=== PATIENT | male | born 1980 | race Caucasian/White ===

== ENCOUNTER 2021-02-18 14:54 | Inpatient (IN) ==
[2021-02-18] MEDS ORDERED: NS 0.9% 1000 ml BAG 1,000 ML IV ONE ×2 (14:56→15:07)
[2021-02-18 15:14] LABS: Hematocrit 51 % (42-52); Hemoglobin 16.9 g/dL (14.0-18.0); Mean Corpuscular HGB Conc 33 g/dL (31-36); Mean Corpuscular Hemoglobin 31 pg (27-31); Mean Corpuscular Volume 93 fL (80-94); Mean Platelet Volume 7.9 fL (7.4-10.4); Platelet Count 289 10^3/uL (150-450); Red Blood Count 5.45 10^6 /uL (4.18-5.48); Red Cell Distribution Width 14 % (10-15); White Blood Count 26.3 10^3/uL (3.5-10.8)
[2021-02-18] MEDS ORDERED: Iodixanol (CONTRAST) 320 MG/ML 100 ML SDV IV ONE (15:16)
[2021-02-18] MEDS ORDERED: Lorazepam PYXIS KEY PRN (15:18)
[2021-02-18] MEDS ORDERED: LORazepam 2 mg VIAL 1 ml IV PUSH ONE (15:18)
[2021-02-18 15:40] LABS: Troponin I 0.06 ng/mL (<0.03)
[2021-02-18 15:49] LABS: ABS Basophils 0.1 10^3/ul (0-0.2); ABS Lymphocytes 1.5 10^3/ul (1.0-4.8); ABS Monocytes 1.2 10^3/ul (0-0.8); ABS Neutrophils 23.5 10^3/ul (1.5-7.7); Activated Partial Thrombo Time 25.3 seconds (26.0-38.0); Eosinophil % 0.1 %; INR 0.98 (0.82-1.09); Lymphocyte % 5.6 %
[2021-02-18 15:52] LABS: ALT 100 U/L (7-52); AST 112 U/L (13-39); Albumin 4.8 g/dL (3.2-5.2); Albumin/Globulin Ratio 1.7 (1-3); Alkaline Phosphatase 79 U/L (34-104); Blood Urea Nitrogen 29 mg/dL (6-24); CO2 Carbon Dioxide 24 mmol/L (22-32); Chloride 97 mmol/L (101-111); Cholesterol 156 mg/dL; Creatine Kinase 1386 U/L (10-223); EGFR African American 69.2 (>60); EGFR Non-African American 57.2 (>60); Globulin 2.8 g/dL (2-4); Glucose 137 mg/dL (70-100); HDL Cholesterol 60.4 mg/dL; LDL Cholesterol 78 mg/dL; Sodium 141 mmol/L (135-145); Total Protein 7.6 g/dL (6.4-8.9); Triglycerides 86 mg/dL
[2021-02-18 15:55] LABS: Anion Gap 20 mmol/L (2-11); Potassium 5.2 mmol/L (3.5-5.0)
[2021-02-18] MEDS ORDERED: cefTRIAXone 2 GM ADDV.VIAL 2 GM in NS 0.9% 100 ml BAG 100 ML IVPB ONE (16:06)
[2021-02-18] MEDS ORDERED: Acyclovir IV 860 MG in NS 0.9% 250 ml 250 ML IVPB ONE (16:07)
[2021-02-18] MEDS ORDERED: Vancomycin 1,000 MG VIAL IVPB SCH (17:00)
[2021-02-18] MEDS ORDERED: Vancomycin 2,000 MG in NS 0.9% 500 ml BAG 500 ML IVPB ONE (17:00)
[2021-02-18] MEDS ORDERED: Lactated Ringers 1000 ml BAG 1,000 ML IV SCH ×2 (17:00→19:34)
[2021-02-18 18:09] LABS: Urine Appearance Cloudy; Urine Bilirubin Negative (Negative); Urine Blood 3+ (Negative); Urine Color Yellow; Urine Glucose 1+(50 mg/dL) (Negative); Urine Ketones Trace (Negative); Urine Nitrite Negative (Negative); Urine Protein 2+(100 mg/dL) (Negative); Urine Specific Gravity 1.033 (1.002-1.030); Urine Urobilinogen Negative (Negative)
[2021-02-18 18:16] LABS: Urine Bacteria Absent (Absent); Urine Red Blood Cell Trace(0-2/hpf) (Absent); Urine Squamous Epithelial Cell Present (Absent); Urine White Blood Cell Trace(0-5/hpf) (Absent)
[2021-02-18 19:24] LABS: Urine Benzodiazepine Screen Presumptive Positive (None Detect); Urine Cannabinoids Screen None Detected (None Detect); Urine Opiates Screen None Detected (None Detect)
[2021-02-18 22:25] LABS: Anion Gap 6 mmol/L (2-11); Blood Urea Nitrogen 26 mg/dL (6-24); CO2 Carbon Dioxide 26 mmol/L (22-32); Calcium 7.8 mg/dL (8.6-10.3); Chloride 101 mmol/L (101-111); EGFR African American 102.4 (>60); EGFR Non-African American 84.6 (>60); Glucose 96 mg/dL (70-100); Potassium 5.9 mmol/L (3.5-5.0); Sodium 133 mmol/L (135-145)
[2021-02-18 22:29] LABS: Troponin I 0.21 ng/mL (<0.03)
[2021-02-19 00:47] LABS: Creatine Kinase 25693 U/L (10-223)
[2021-02-19 02:08] LABS: Troponin I 0.24 ng/mL (<0.03)
[2021-02-19] MEDS ORDERED: Lactated Ringers 1000 ml BAG 1,000 ML IV SCH (02:47)
[2021-02-19] MEDS ORDERED: Dextrose 50% Syringe 50 ml 25 GM/50 ML SYRINGE IV PUSH ONE (02:48)
[2021-02-19] MEDS ORDERED: Dextrose 50% Syringe 50 ml 25 GM/50 ML SYRINGE IV PUSH PRN (02:48)
[2021-02-19] MEDS: NS 0.9% 1000 ml BAG 1,000 ML IV SCH ×2 (03:20→08:09)
[2021-02-19 03:21] LABS: ALT 219 U/L (7-52); AST 578 U/L (13-39); Albumin 3.5 g/dL (3.2-5.2); Albumin/Globulin Ratio 1.8 (1-3); Alkaline Phosphatase 59 U/L (34-104); Anion Gap 5 mmol/L (2-11); Blood Urea Nitrogen 23 mg/dL (6-24); CO2 Carbon Dioxide 27 mmol/L (22-32); Calcium 8.3 mg/dL (8.6-10.3); Chloride 101 mmol/L (101-111); EGFR Non-African American 90.9 (>60); Glucose 135 mg/dL (70-100); Potassium 4.7 mmol/L (3.5-5.0); Sodium 133 mmol/L (135-145); Total Protein 5.5 g/dL (6.4-8.9)
[2021-02-19] MEDS ORDERED: Patiromer POWDER 8.4 GM PAK PO ONE (03:28)
[2021-02-19] MEDS ORDERED: Calcium Gluconate 2 GM in NS 0.9% 100 ml BAG 100 ML IV ONE (03:30)
[2021-02-19 03:51] LABS: Creatine Kinase 32506 U/L (10-223)
[2021-02-19 06:21] LABS: ABS Lymphocytes 1.5 10^3/ul (1.0-4.8); ABS Monocytes 1.4 10^3/ul (0-0.8); ABS Neutrophils 11.1 10^3/ul (1.5-7.7); Eosinophil % 0.1 %; Hematocrit 41 % (42-52); Hemoglobin 13.8 g/dL (14.0-18.0); Lymphocyte % 10.4 %; Mean Corpuscular HGB Conc 34 g/dL (31-36); Mean Corpuscular Hemoglobin 30 pg (27-31); Mean Corpuscular Volume 89 fL (80-94); Mean Platelet Volume 8.3 fL (7.4-10.4); Platelet Count 199 10^3/uL (150-450); Red Blood Count 4.56 10^6 /uL (4.18-5.48); Red Cell Distribution Width 13 % (10-15)
[2021-02-19 06:27] LABS: INR 1.1 (0.82-1.09)
[2021-02-19 06:35] LABS: Albumin 3.2 g/dL (3.2-5.2); Anion Gap 5 mmol/L (2-11); CO2 Carbon Dioxide 28 mmol/L (22-32); Calcium 8.8 mg/dL (8.6-10.3); Chloride 102 mmol/L (101-111); Magnesium 1.8 mg/dL (1.9-2.7); Sodium 135 mmol/L (135-145)
[2021-02-19 06:41] LABS: ALT 218 U/L (7-52); AST 593 U/L (13-39); Albumin/Globulin Ratio 1.5 (1-3); Alkaline Phosphatase 62 U/L (34-104); Blood Urea Nitrogen 19 mg/dL (6-24); EGFR African American 112.8 (>60); EGFR Non-African American 93.2 (>60); Globulin 2.1 g/dL (2-4); Glucose 104 mg/dL (70-100); Total Protein 5.3 g/dL (6.4-8.9); Troponin I 0.25 ng/mL (<0.03)
[2021-02-19] MEDS ORDERED: Magnesium Sulfate 2 gm BAG 2 GM/50 ML BAG IVPB ONE (06:51)
[2021-02-19] MEDS ORDERED: Patiromer POWDER 8.4 GM PAK PO SCH (09:00)
[2021-02-19 09:49] LABS: Troponin I 0.22 ng/mL (<0.03)
[2021-02-19] MEDS ORDERED: Gadoteridol (CONTRAST) 279.3 MG/ML 10 ML IV ONE (19:59)
[2021-02-20 05:44] LABS: ABS Basophils 0.1 10^3/ul (0-0.2); ABS Eosinophils 0.1 10^3/ul (0-0.6); ABS Lymphocytes 1.8 10^3/ul (1.0-4.8); ABS Monocytes 1.2 10^3/ul (0-0.8); ABS Neutrophils 8.7 10^3/ul (1.5-7.7); Eosinophil % 0.5 %; Hematocrit 42 % (42-52); Hemoglobin 14.4 g/dL (14.0-18.0); Lymphocyte % 14.9 %; Mean Corpuscular HGB Conc 34 g/dL (31-36); Mean Corpuscular Hemoglobin 31 pg (27-31); Mean Corpuscular Volume 89 fL (80-94); Mean Platelet Volume 7.6 fL (7.4-10.4); Platelet Count 178 10^3/uL (150-450); Red Blood Count 4.73 10^6 /uL (4.18-5.48); Red Cell Distribution Width 13 % (10-15); White Blood Count 11.8 10^3/uL (3.5-10.8)
[2021-02-20 06:09] LABS: Calcium 8.6 mg/dL (8.6-10.3); EGFR African American 132.8 (>60); EGFR Non-African American 109.8 (>60); Potassium 3.9 mmol/L (3.5-5.0)
[2021-02-20 06:35] LABS: Creatine Kinase 31060 U/L (10-223)
[2021-02-20 09:56] VITALS: BP 142/86
== END 2021-02-20 12:00 | disposition home or self-care (01) | DRG 862 ==
LOC: ED 14:54 → ICU 16:39 → MEDTELE 02-19 14:49
PROVIDERS: ADMIT Internal Medicine Critical Care Medicine; ATTEND Internal Medicine